=== PATIENT | male | born 1990 ===

== ENCOUNTER 2016-11-24 13:54 | Emergency (ER) | payer MEDICAID, OTHER ==
[2016-11-24 14:00] VITALS: BMI 28.0
[2016-11-24 14:06] VITALS: TEMP 98.7
[2016-11-24] MEDS ORDERED: Alum-Mag Hydrox-Simethicone Susp (30 mL) PO STA (14:12)
--- NOTE | 2016-11-24 14:13 | ED PDOC ---
Arrival/HPI - General Chief Complaint: Chest Pain Time Seen by Provider: 11/24/16 14:01 Historian: Patient - History of Present Illness Narrative History of Present Illness (Text): 11/24/16 14:13 A 26 year old male, who denies any past medical history, presents to the emergency department complaining of intermittent epigastric pain for 1 month. Patient notes radiating pain towards chest and describes it as a burning sensation. Patient also notes associated shortness of breath secondary to pain. He reports his symptoms are worse in the mornings. No SOB now. Patient takes Zantac and Maalox, with temporary relief. Patient denies any fever, chills, nausea, vomiting, urinary symptoms, back pain or any other complaints PMD: None Time/Duration: Other (1 month) Symptom Course: Intermittent Quality: Other Context: Home Past Medical History - Provider Review Nursing Documentation Reviewed: Yes - Infectious Disease Hx of Infectious Diseases: None - Psychiatric Hx Substance Use: Yes - Anesthesia Hx Anesthesia: No Family/Social History - Physician Review Nursing Documentation Reviewed: Yes Family/Social History: No Known Family HX Smoking Status: Never Smoked Hx Alcohol Use: Yes Frequency of alcohol use: Socially Hx Substance Use: Yes Substance used: marijuana Allergies/Home Meds Allergies/Adverse Reactions: Allergies No Known Allergies Allergy (Verified 11/24/16 14:00) Review of Systems - Physician Review All systems were reviewed & negative as marked: Yes - Review of Systems Constitutional: absent: Fevers, Night Sweats Respiratory: SOB Cardiovascular: Chest Pain Gastrointestinal: Abdominal Pain. absent: Nausea, Vomiting Genitourinary Male: absent: Dysuria, Frequency, Hematuria Musculoskeletal: absent: Back Pain Physical Exam Vital Signs Reviewed: Yes Vital Signs Temp Pulse Resp BP Pulse Ox 11/24/16 15:38 80 16 135/61 97 11/24/16 14:05 98.7 F 101 H 18 134/70 98 Temperature: Afebrile Blood Pressure: Normal Pulse: Tachycardic Respiratory Rate: Normal Appearance: Positive for: Well-Appearing, Non-Toxic, Comfortable Pain Distress: None Mental Status: Positive for: Alert and Oriented X 3 - Systems Exam Head: Present: Atraumatic, Normocephalic Pupils: Present: PERRL Extroacular Muscles: Present: EOMI Conjunctiva: Present: Normal Mouth: Present: Moist Mucous Membranes Pharnyx: No: ERYTHEMA, EXUDATE, TONSILS ENLARGED Neck: Present: Normal Range of Motion Respiratory/Chest: Present: Clear to Auscultation, Good Air Exchange. No: Respiratory Distress, Accessory Muscle Use Cardiovascular: Present: Regular Rate and Rhythm, Normal S1, S2. No: Murmurs Abdomen: Present: Tenderness (Epigastric abdominal tenderness), Normal Bowel Sounds. No: Distention, Peritoneal Signs, Rebound, Guarding Back: Present: Normal Inspection Upper Extremity: Present: Normal Inspection. No: Cyanosis, Edema Lower Extremity: Present: Normal Inspection. No: Edema Neurological: Present: GCS=15, CN II-XII Intact, Speech Normal Skin: Present: Warm, Dry, Normal Color. No: Rashes Psychiatric: Present: Alert, Oriented x 3, Normal Insight, Normal Concentration Medical Decision Making ED Course and Treatment: 11/24/16 14:13 Impression: A 26 year old male with epigastric pain radiating towards chest. Patient notes associated shortness of breath. Differential Diagnosis included but are not limited to: Gastritis vs. GERD Plan: -- EKG -- Labs -- Maalox and Protonix -- Reassess and disposition Progress Notes: EKG shows NSR at [address]-segment elevations, normal intervals, normal axis. Interpreted by me. Report Date : 11/24/2016 14:40:17 Procedure: Chest xray Dictator : Erik Dominguez MD IMPRESSION: No active disease. 11/24/16 15:20 Patient feels much better. Symptoms resolved. He will make sure to follow up with the clinic and I explained to him he will also need an outpatient GI follow up. He repeated the instructions back to me and will make sure to followup. - Lab Interpretations Lab Results: 11/24/16 14:20 11/24/16 14:20 Lab Results 11/24/16 14:20: Sodium 141, Potassium 3.9, Chloride 103, Carbon Dioxide 27, Anion Gap 15, BUN 12, Creatinine 0.9, Est GFR ( Amer) > 60, Est GFR (Non- Af Amer) > 60, Random Glucose 111 H, Calcium 9.3, Total Bilirubin 0.5, AST 31, ALT 58 H, Alkaline Phosphatase 63, Total Protein 7.3, Albumin 4.4, Globulin 2.9 , Albumin/Globulin Ratio 1.5, Lipase 55 11/24/16 14:20: WBC 9.1, RBC 5.44, Hgb 16.1, Hct 46.6, MCV 85.7, MCH 29.6, MCHC 34.5, RDW 12.8, Plt Count 222, MPV 10.7, Gran % 47.7 L, Lymph % (Auto) 41.9 H, [place] % (Auto) 5.1, Eos % (Auto) 5.1 H, Baso % (Auto) 0.2, Gran # 4.32, Lymph # 3.8 H, [place] # 0.5, Eos # 0.5, Baso # 0.02 I have reviewed the lab results: Yes - RAD Interpretation Radiology Orders: 11/24/16 14:11 CHEST PORTABLE [RAD] Stat - Medication Orders Current Medication Orders: Discontinued Medications Al Hydrox/Mg Hydrox/Simethicone (Maalox Plus 30 Ml) 30 ml PO STAT STA Stop: 11/24/16 14:13 Last Admin: 11/24/16 14:30 Dose: 30 ml Pantoprazole Sodium (Protonix Inj) 40 mg IVP STAT STA Stop: 11/24/16 14:13 Last Admin: 11/24/16 14:30 Dose: 40 mg - Scribe Statement The provider has reviewed the documentation as recorded by the Omid Nguyen Provider Scribe Attestation: All medical record entries made by the Scribe were at my direction and personally dictated by me. I have reviewed the chart and agree that the record accurately reflects my personal performance of the history, physical exam, medical decision making, and the department course for this patient. I have also personally directed, reviewed, and agree with the discharge instructions and disposition. Disposition/Present on Arrival - Present on Arrival Any Indicators Present on Arrival: No History of DVT/PE: No History of Uncontrolled Diabetes: No Urinary Catheter: No History of Decub. Ulcer: No History Surgical Site Infection Following: None - Disposition Have Diagnosis and Disposition been Completed?: Yes Diagnosis: Abdominal pain Disposition: HOME/ ROUTINE Disposition Time: 15:20 Patient Plan: Discharge Condition: IMPROVED Discharge Instructions (ExitCare): Abdominal Pain (ED) Additional Instructions: Hernandez, thank you for letting us take care of you today. Your provider was Dr. Aaron. You were treated for Abdominal Pain. The emergency medical care you received today was directed at your acute symptoms. If you were prescribed any medication, please fill it and take as directed. It may take several days for your symptoms to resolve. Return to the Emergency Department if your symptoms worsen, do not improve, or if you have any other problems. Please contact your doctor or call one of the physicians/clinics you have been referred to that are listed on the Patient Visit Information form that is included in your discharge packet. Bring any paperwork you were given at discharge with you along with any medications you are taking to your follow up visit. Our treatment cannot replace ongoing medical care by a primary care provider (PCP) outside of the emergency department. Thank you for allowing the [facility] team to be part of your care today. If you had an X-Ray or CT scan: A Radiologist will review the ED reading if any change in treatment is needed we will contact you. If you had a blood, urine, or wound culture: It will take several days for the results, if any change in treatment is needed we will contact you. If you had an STI test: It will take 48 hours for the results. Please call after 1 week if you have not heard back. Prescriptions: Esomeprazole Magnesium [Nexium] 40 mg PO DAILY #20 capsule. Referrals: [facility] at [facility] [Outside] - Follow up with primary PCP,NO [Primary Care Provider] - Follow up with primary Fareed Barrett MD [Medical Doctor] - Follow up with primary Forms: [employer] (Lebanese), WORK NOTE
--- NOTE | 2016-11-24 14:42 | RAD ---
HISTORY: chest pain COMPARISON: No prior. FINDINGS: LUNGS: No active pulmonary disease. PLEURA: No significant pleural effusion identified, no pneumothorax apparent. CARDIOVASCULAR: Normal. OSSEOUS STRUCTURES: No significant abnormalities. VISUALIZED UPPER ABDOMEN: Normal. OTHER FINDINGS: None. IMPRESSION: No active disease.
[2016-11-24 14:52] LABS: BASO # 0.02 K/mm3 (0.0-2.0); BASO % 0.2 % (0.0-3.0); EOS # 0.5 (0.0-0.7); EOS % 5.1 % (1.5-5.0); GRAN # 4.32 (1.4-6.5); GRAN % 47.7 % (50.0-68.0); HEMATOCRIT 46.6 % (42.0-52.0); LYMPH # 3.8 (1.2-3.4); LYMPH % 41.9 % (22.0-35.0); MEAN CELL VOLUME 85.7 fl (80.0-105.0); MEAN CORPUSCULAR HEMOGLOBIN 29.6 pg (25.0-35.0); MEAN CORPUSCULAR HGB CONC 34.5 g/dl (31.0-37.0); MEAN PLATELET VOLUME 10.7 fl (7.0-11.0); MONO # 0.5 (0.1-0.6); MONO % 5.1 % (1.0-6.0); RED CELL DISTRIBUTION WIDTH 12.8 % (11.5-14.5); WHITE BLOOD COUNT 9.1 10^3/ul (4.5-11.0)
[2016-11-24 14:53] LABS: ALB/GLOB RATIO 1.5 (1.1-1.8); ALKALINE PHOSPHATASE 63 U/L (38-126); ALT/SGPT 58 U/L (7-56); AST/SGOT 31 U/L (17-59); BILIRUBIN,TOTAL 0.5 mg/dL (0.2-1.3); BLOOD UREA NITROGEN 12 mg/dL (7-21); CALCIUM 9.3 mg/dL (8.4-10.5); CARBON DIOXIDE 27 mmol/L (21-33); CHLORIDE 103 mmol/L (98-107); GFR AFRICAN-AMERICAN > 60; GLUCOSE,RANDOM 111 mg/dL (70-110); LIPASE 55 U/L (23-300); POTASSIUM 3.9 mmol/L (3.6-5.0); SODIUM 141 mmol/L (132-148); TOTAL PROTEIN 7.3 g/dL (5.8-8.3)
[2016-11-24 15:38] VITALS: BP 135/61; PULSE 80; RESP 16; O2SAT 97
--- NOTE | 2016-11-25 08:52 | CARD ---
APPROVED REPORT EKG Measurement Heart [id number] <Conclusion> Normal sinus rhythm Normal ECG
== END 2016-11-24 15:40 | disposition home or self-care (01) ==
LOC: ED 13:54
DX: R10.13 Epigastric pain (principal)
CPT/HCPCS: 71010; 80053; 83690; 85025; 93005; 96374; 99284; C9113